=== PATIENT | female | born 1980 | race Asian ===

== ENCOUNTER 2023-12-04 20:54 | Outpatient (CLI) | payer OTHER ==
--- NOTE | 2023-12-05 10:41 | Ultrasound Report ---
PROCEDURE: Pelvic w/Transvaginal INDICATIONS: AUB 43-year-old female with history of heavy periods. TECHNIQUE: Real-time scanning was performed of the pelvic organs, with image documentation. Additional endovagi nal scanning was necessary due to incomplete visualization of the adnexal and endometrial structures by transabdominal scanning. COMPARISON: None. FINDINGS: Uterus: Uterus is anteverted and normal in size at 4.1 x 3.5 x 4.3 cm. The myometrium is heterogene ous. The endometrium measures 3.5 mm in combined thickness. A 1.0 x 1.0 x 1.0 cm midline posterior intramural fibroid is noted. Ovaries: The right ovary measures 2.4 x 1.3 x 2.0 cm, with a calculated ovarian volume of 3.1 cc. T he left ovary measures 2.5 x 1.3 x 2.3 cm, with a calculated ovarian volume of 4.0 cc. The ovaries h ave a normal sonographic appearance. Less than 12 follicles can be seen in each ovary. No adnexal m asses are seen. No cystic lesions measuring greater than 3 cm. Other: No pathologic free abdominal or pelvic fluid. IMPRESSION: 1.Myometrium appears mildly heterogeneous, which is nonspecific but can be seen in the setting of laura nomyosis. 2.Small 1 cm posterior intramural uterine fibroid. Reviewed by: Fernando Dougherty MD on 12/05/2023 10:40 AM PDT Approved by: Fernando Dougherty MD on 12/05/2023 10:40 AM PDT Station ID: [id number]
== END 2023-12-04 20:55 | disposition home or self-care (01) ==
LOC: DI 20:54
PROVIDERS: ATTEND Nurse Practitioner Family
DX: D25.1 Intramural leiomyoma of uterus (principal); N93.9 Abnormal uterine and vaginal bleeding, unspecified